=== PATIENT | male | born 1985 | race Caucasian/White ===

== ENCOUNTER 2023-10-08 04:32 | Day surgery (SDC) | payer OTHER ==
[2023-10-04 10:45] VITALS: BMI 26.6
[2023-10-08 08:37] VITALS: TEMP 97.5
[2023-10-08 09:03] VITALS: PULSE 57; RESP 16
[2023-10-08 09:06] VITALS: BP 103/57
== END 2023-10-08 09:26 | disposition home or self-care (01) ==
LOC: JASU-ENDO 04:32
PROVIDERS: ATTEND Internal Medicine Gastroenterology
PROC: 0DJD8ZZ Inspection of Lower Intestinal Tract, Via Natural or Artificial Opening Endoscopic (ICD-10-PCS; principal; 2023-10-08 08:00)
DX: K64.8 Other hemorrhoids (principal); K92.1 Melena

== ENCOUNTER 2023-10-22 04:38 | Day surgery (SDC) | payer OTHER ==
[2023-10-16 14:25] VITALS: BMI 25.8
[2023-10-22 12:57] VITALS: RESP 16; TEMP 98.1
[2023-10-22 13:01] VITALS: BP 120/85; PULSE 58
== END 2023-10-22 13:35 | disposition home or self-care (01) ==
LOC: JASU-ENDO 04:38
PROVIDERS: ATTEND Internal Medicine Gastroenterology
PROC: 0DB68ZX Excision of Stomach, Via Natural or Artificial Opening Endoscopic, Diagnostic (ICD-10-PCS; principal; 2023-10-22 11:30)
DX: K31.7 Polyp of stomach and duodenum (principal); K29.50 Unspecified chronic gastritis without bleeding
CPT/HCPCS: 88305-TC; 88342-TC